=== PATIENT | male | born 2000 | race Caucasian/White ===

== ENCOUNTER 2024-10-05 21:43 | Emergency (ER) | payer SELFPAY ==
[~2024-10-05] VITALS: Ht 182.9 cm; Wt 88.0 kg
[2024-10-05 21:46] VITALS: O2SAT 99
[2024-10-05 21:56] VITALS: BP 123/78; PULSE 79; RESP 16; TEMP 36.7; O2SAT 100
[2024-10-06] MEDS: LIDOCAINE HCL/EPINEPHRINE 1%-EPI 1:100,000 20ML VIAL INFIL ONE (00:44)
[2024-10-06] MEDS ORDERED: IBUP-2030 MT (07:46)
[2024-10-06] MEDS ORDERED: TRAM50TA3 MT (07:46)
== END 2024-10-06 01:42 | disposition home or self-care (01) ==
LOC: ER 21:43
DX: S62.307A Unspecified fracture of fifth metacarpal bone, left hand, initial encounter for closed fracture (principal); X58.XXXA Exposure to other specified factors, initial encounter; Y93.89 Activity, other specified; Y92.89 Other specified places as the place of occurrence of the external cause; Y99.8 Other external cause status
CPT/HCPCS: 99284; 26605; 73130; J2004; 29125; 99283

== ENCOUNTER 2024-10-06 06:54 | Emergency (ER) | payer SELFPAY ==
[~2024-10-06] VITALS: Ht 180.3 cm; Wt 84.0 kg
[2024-10-06 07:12] VITALS: O2SAT 100
[2024-10-06] MEDS ORDERED: TRAM50TA3 MT (07:46)
[2024-10-06] MEDS ORDERED: IBUP-2030 MT (07:46)
[2024-10-06 08:07] VITALS: BP 113/70; PULSE 74; RESP 18; TEMP 36.8; O2SAT 97
== END 2024-10-06 08:08 | disposition home or self-care (01) ==
LOC: ER 06:54
DX: S62.92XA Unspecified fracture of left hand, initial encounter for closed fracture (principal); X58.XXXA Exposure to other specified factors, initial encounter; Y93.89 Activity, other specified; Y92.89 Other specified places as the place of occurrence of the external cause; Y99.8 Other external cause status
CPT/HCPCS: 99283